=== PATIENT | female | born 1960 | race Hispanic/Latino ===

== ENCOUNTER 2018-08-03 08:06 | Emergency (ER) | payer OTHER ==
[2018-08-03 08:12] VITALS: BP 120/65
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
[2018-08-03] MEDS ORDERED: IBUPROFEN PO ONE (09:05)
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
--- NOTE | 2018-08-03 11:24 | Cat Scan Report ---
PROCEDURE: CT LOWER EXTREMITY RT WO CON TECHNIQUE: Axial images obtained of the right knee without intravenous contrast. Sagittal and ramirez l reconstructions also obtained. Correlation is made with the prior plain film radiographs HISTORY: lateral tibial plateau w/mild depreesion pain COMPARISONS: No priors FINDINGS: Comminuted fracture of the lateral tibial condyle involving the tibial plateau. There is depression of the articular surface of approximately 4 to 5 mm. The medial tibial condyle, proximal fibula and distal femur are intact. There is no evidence of joint effusion. IMPRESSION: . Comminuted fracture of the lateral tibial condyle involving the tibial plateau with depression of t he articular surface. This document is electronically signed by Fox Goldstein MD., August 03 2018 11:22:16 AM ET
[2018-08-03] MEDS ORDERED: NORCO 5/325 PO ONE (12:16)
[2018-08-03] MEDS ORDERED: NORCO 5/325 ONE (12:19)
== END 2018-08-03 12:25 | disposition home or self-care (01) ==
LOC: ED 08:06
DX: S82.121A Displaced fracture of lateral condyle of right tibia, initial encounter for closed fracture (principal); I25.2 Old myocardial infarction; E11.9 Type 2 diabetes mellitus without complications; V89.2XXA Person injured in unspecified motor-vehicle accident, traffic, initial encounter; Y93.89 Activity, other specified; Y92.488 Other paved roadways as the place of occurrence of the external cause; Y99.8 Other external cause status